=== PATIENT | male | born 1960 | race American Indian/Alaskan Native ===

== ENCOUNTER 2017-01-20 08:08 | Day surgery (SDC) | payer BC ==
[~2017-01-20 08:08] MED LIST: ANCEF/STERILE WATER 2 GM/20 ML IV NR; MARCAINE-EPI/PF 0.5%-1:200,000 INFILTRATI ONE; NACL 0.9% IR ONE
[2017-01-20] MEDS ORDERED: NACL BACTERIOSTATIC INFILTRATI ONE (09:09)
--- NOTE | 2017-01-20 09:19 | Anesthesia Day of Surgery ---
Anesthesia Day of Surgery - Day of Surgery Patient Examined: Yes Patient H&P Reviewed: Yes Patient is NPO: Yes
--- NOTE | 2017-01-20 09:19 | Anesthesia Consultation ---
Anesthesia Consult and Med Hx Date of service: 01/20/17 - Airway Anesthetic Teeth Evaluation: Good, Caps (back tooth) ROM Head & Neck: Adequate Mental/Hyoid Distance: Adequate Mallampati Class: Class I Intubation Access Assessment: Probably Good - Pulmonary Exam CTA: Yes - Cardiac Exam Cardiac Exam: RRR (has irregular heart beat. undocumented, no issues. runs in family) - Pre-Operative Health Status ASA Pre-Surgery Classification: ASA2 Proposed Anesthetic Plan: General - Pulmonary Hx Smoking: No Hx Sleep Apnea: No (LOTUS PRE SCREEN HIGH RISK) - Cardiovascular System Hx Hypertension: Yes (ON MEDS X 2 WEEKS) - Other Systems Hx Cancer: No
[2017-01-20] MEDS ORDERED: PEPCID ONE (09:22)
[2017-01-20] MEDS ORDERED: NACL 0.9% 1000 ML 1,000 ML ONE ×2 (09:22→10:54)
[2017-01-20] MEDS ORDERED: MARCAINE-EPI/PF 0.5%-1:200,000 INFILTRATI ONE ×2 (09:24→10:18)
[2017-01-20] MEDS ORDERED: DILAUDID ONE (09:24)
[2017-01-20] MEDS ORDERED: SUBLIMAZE ONE (09:24)
[2017-01-20] MEDS ORDERED: XYLOCAINE MPF 2% ONE (09:25)
[2017-01-20] MEDS ORDERED: ROBINUL ONE ×2 (09:25)
[2017-01-20] MEDS ORDERED: ZEMURON IV ONE (09:25)
[2017-01-20] MEDS ORDERED: DIPRIVAN 10 MG/ML IV ONE (09:25)
[2017-01-20] MEDS ORDERED: ZOFRAN ONE (09:26)
[2017-01-20] MEDS ORDERED: DECADRON ONE (09:26)
[2017-01-20] MEDS ORDERED: NEOSTIGMINE ONE (09:26)
[2017-01-20] MEDS ORDERED: VERSED IV ONE (09:30)
[2017-01-20] MEDS ORDERED: PEPCID PO NR (10:00)
[2017-01-20] MEDS ORDERED: NACL 0.9% 1000 ML 1,000 ML IV SCH (10:00)
[2017-01-20] MEDS ORDERED: NEO SYNEPHRINE ONE (10:15)
[2017-01-20] MEDS ORDERED: ZOFRAN IV PRN (10:30)
[2017-01-20] MEDS ORDERED: NACL 0.9% IR ONE (10:39)
[2017-01-20] MEDS ORDERED: PERCOCET 5/325 PO PRN (11:00)
--- NOTE | 2017-01-20 11:34 | Operative Report ---
Operative Report Operative Report: Date of procedure: 01/20/2017 Pre-operative diagnosis: Left inguinal hernia Post-operative diagnosis: Same Procedure name(s): Laparoscopic preperitoneal left inguinal hernia repair with mesh Surgeon: Luli Fischer MD Diplomatic Interpreter: None Anesthesia: General, 0.25% Marcaine EBL: Minimal Complications: None Instrument Count: Correct Indications: This is a 56-year-old male with a history of left groin bulge. Clinical examination was consistent with a left inguinal hernia. The risks and benefits discussed until all questions were answered. He was subsequently brought to the OR. Findings: As above Procedure: The patient was placed supine upon the table after adequate anesthesia was reached. We reviewed the informed consent. The patient was then prepped and draped in the usual sterile fashion. We infiltrated local anesthetic at the level of the umbilicus. A 1 cm incision was made. Dissection was carried down to the anterior layer of the rectus sheath. This was incised using a 15 blade. The rectus muscles identify retract and laterally. We then inserted a Covidian oval balloon dissector into the pre- peritoneal space. This was inflated. We were clearly able to see the pubic arch as well as the epigastric vessels without difficulty. The balloon was then deflated and substituted for a 10 mm balloon tipped trocar. The preperitoneal space was insufflated a 10 mm mercury. We placed 2 5mm ports both in the midline after infiltration of local anesthetic. This was performed under direct vision. We began our dissection on the left and dissected free the hernia sac from the cord structures. Both the gonadal vessels and the vas deferens were identified and preserved. We then inserted a medium Bard 3-D Max left sided medium mesh into the preperitoneal space. This was secured medially to Elieser's ligament using a Protack device and superiorly and laterally to the anterior abdominal wall. Care was taken to avoid the iliopubic tract. We good coverage of all hernia spaces. We then evacuated the insufflation. Removed all ports, and closed all port sites using a 4-0 Monocryl in a subcuticular fashion. The patient tolerated the procedure well was awakened, extubated, and transferred to PACU in no apparent distress.
--- NOTE | 2017-01-20 11:38 | Short Stay Summary ---
Short Stay Documentation Date of service: 01/20/17 - History H&P: dictated - Allergies and Medications Current Medications: Allergies No Known Allergies Allergy (Verified 01/15/17 13:36) Home Medications Medication Instructions Recorded Confirmed Last Taken Type Ibuprofen [Motrin 800 MG tab] 800 mg PO PRN PRN 01/15/17 01/20/17 01/14/17 History Lisinopril [Zestril TAB] 10 mg PO QDAY 01/15/17 01/20/17 01/19/17 19:00 History Active Medications Cefazolin Sodium (Ancef/Sterile Water 2 Gm/20 Ml) 2 gm IV PREOP NR Stop: 01/20/17 23:59 Famotidine (Pepcid) 20 mg PO PREOP NR Stop: 01/20/17 12:00 Last Admin: 01/20/17 09:22 Dose: 20 mg Hydromorphone HCl (Dilaudid) 0.5 mg IV Q10MIN PRN PRN Reason: Pain , Severe (7-10) Stop: 01/20/17 12:00 Sodium Chloride (Nacl 0.9% 1000 Ml) 1,000 mls @ 75 mls/hr IV DIRECT OMERO Last Admin: 01/20/17 09:23 Dose: 75 mls/hr - Brief post op/procedure progress note Date of procedure: 01/20/17 Pre-op diagnosis: Left inguinal hernia Post-op diagnosis: same Procedure: Laparoscopic preperitoneal left inguinal hernia repair with mesh Anesthesia: GETA Findings: As above Surgeon: CARLOS YROK Estimated blood loss: minimal Pathology: none Condition: stable - Disposition Condition at discharge: Stable Disposition: DC-01 TO HOME OR SELFCARE Short Stay Discharge Plan Activity: other (no lifting greater than 25 pounds for 2 weeks) Diet: regular Wound: keep clean and dry Follow up with: CARLOS YORK MD [Staff Physician] - 7 Days Prescriptions: oxyCODONE /ACETAMINOPHEN [Percocet 5/325] 1 tab PO Q6HR PRN #30 tablet PRN Reason: Pain
[2017-01-20] MEDS: DILAUDID IV PRN ×2 (11:40→11:55)
[2017-01-20 15:05] VITALS: BP 153/97
== END 2017-01-20 13:32 | disposition home or self-care (01) ==
LOC: OR 08:08
PROVIDERS: ATTEND Surgery
DX: K40.90 Unilateral inguinal hernia, without obstruction or gangrene, not specified as recurrent (principal); I10 Essential (primary) hypertension
CPT/HCPCS: 49505; C1726; C1781; J0690; J1100; J1170; J2250; J2370; J2405; J2704; J2710; J3010; J7030